=== PATIENT | male | born 1995 | race Caucasian/White ===

== ENCOUNTER 2017-04-01 20:57 | Emergency (ER) | payer BC, SELFPAY ==
[2017-04-02] MEDS ORDERED: ALPRAZolam 0.25 MG TAB ONE (00:03)
--- NOTE | 2017-04-04 16:46 | EKG ---
Test Reason : Blood Pressure : / mmHG Vent. Rate : 100 BPM Atrial Rate : 100 BPM P-R Int : 190 ms QRS Dur : 108 ms QT Int : 326 ms P-R-T Axes : 109 009 011 degrees QTc Int : 420 ms Normal sinus rhythm Nonspecific T wave abnormality Abnormal ECG Confirmed by IVELISSE BERGERON ([id number]), website/blog editor [email or web address] ([id number]) on 04/04/2017 4:45:57 PM Referred By: Confirmed By:IVELISSE BERGERON
== END 2017-04-02 00:56 | disposition home or self-care (01) ==
LOC: ERS 20:57
DX: F41.9 Anxiety disorder, unspecified (principal)
CPT/HCPCS: 93005